=== PATIENT | female | born 1990 | race Caucasian/White ===

== ENCOUNTER 2018-08-30 15:27 | Emergency (ER) | payer OTHER ==
[~2018-08-30] VITALS: Ht 172.7 cm; Wt 64.7 kg
[~2018-08-30 15:27] MED LIST: DOCU10CA PO; FERR325T3 PO; MAPA500T2 PO; MOM30SS PO; MOTR200T44 PO; PRENTAB40 PO
[2018-08-30 16:51] LABS: BASO % 0.3 % (0.0-1.0); EOS # 0.1 10^3/uL (0.0-0.50); EOS % 1.5 % (0.0-3.0); HEMATOCRIT 37.4 % (36.0-47.0); HEMOGLOBIN 12.3 g/dl (12.0-15.5); LYMPH # 1.5 10^3/uL (1.5-4.5); MEAN CORPUSCULAR HEMOGLOBIN 26.8 pg (27.0-33.0); MEAN CORPUSCULAR HGB CONC 32.9 g/dl (32.0-36.5); MEAN CORPUSCULAR VOLUME 81.5 fl (80.0-96.0); MONO # 0.4 10^3/uL (0.0-0.8); MONO % 5.2 % (0.0-5.0); NEUTROPHILS # 5.5 10^3/uL (1.8-7.7); NEUTROPHILS % 72.7 % (36.0-66.0); PLATELET COUNT, AUTOMATED 256 10^3/uL (150-450); RED BLOOD COUNT 4.59 10^6/uL (4.00-5.40); WHITE BLOOD COUNT 7.5 10^3/uL (4.0-10.0)
[2018-08-30 16:59] LABS: APPEARANCE, URINE CLEAR (CLEAR); BACTERIA, URINE AUTO NEGATIVE (NEGATIVE); BILIRUBIN, URINE AUTO NEGATIVE (NEGATIVE); BLOOD, URINE BLOOD 1+ (NEGATIVE); COLOR, URINE STRAW (YELLOW); GLUCOSE, URINE (UA) AUTO NEGATIVE (NEGATIVE); KETONE, URINE AUTO NEGATIVE (NEGATIVE); LEUKOCYTE ESTERASE, URINE AUTO NEGATIVE (NEGATIVE); NITRITE, URINE AUTO NEGATIVE (NEGATIVE); PROTEIN, URINE AUTO NEGATIVE (NEGATIVE); RBC, URINE AUTO 2 /HPF (0-3); SPECIFIC GRAVITY URINE AUTO 1.004 (1.002-1.035); SQUAMOUS EPITHELIAL CELL UR AU 0 /HPF (0-6); UROBILINOGEN, URINE AUTO 0.2 mg/dL (0.0-2.0); WBC, URINE AUTO 0 /HPF (0-3)
[2018-08-30 17:45] LABS: BLOOD UREA NITROGEN 7 MG/DL (7-18); CALCIUM LEVEL 8.7 MG/DL (8.5-10.1); CARBON DIOXIDE LEVEL 25 MEQ/L (21-32); CHLORIDE LEVEL 109 MEQ/L (98-107); CREATININE FOR GFR 0.47 MG/DL (0.55-1.30); GLOMERULAR FILTRATION RATE > 60.0 (>60); GLUCOSE, FASTING 92 MG/DL (70-100); HCG, SERUM QUANTITATIVE 103635 MIU/ML; SODIUM LEVEL 139 MEQ/L (136-145)
[2018-08-30 18:15] VITALS: BP 106/57
--- NOTE | 2018-08-30 18:15 | REPVR ---
EXAM: US First Trimester, Transabdominal EXAM DATE/TIME: 08/30/2018 4:53 PM CLINICAL HISTORY: 28 years old, female; Condition or disease; Lmp or gestational age (weeks): 7 weeks 6 days; Other: Vaginal bleeding; 5th ; ; Additional info: Early preg, vag bleeding TECHNIQUE: Imaging protocol: Real-time transabdominal obstetrical ultrasound of the maternal pelvis and a first trimester , less than 14 weeks 0 days, with image documentation. COMPARISON: No relevant prior studies available. FINDINGS: Intrauterine gestational sac with decidual reaction is present. No evidence of implantational hemorrhage. Yolk sac is present. pole is identified, measuring 14 mm in length. Doppler demonstrates heart rate of 160 beats/min. Right ovary measures 4 x 2 x 2.8 cm in size. It contains a 17 mm complex which may represent a small hemorrhagic cyst. Left ovary measures 3.5 x 4.2 x 1.5 cm in size. It contains a 17 mm cyst Both right and left ovary demonstrate normal Doppler flow. No abnormal volume of free pelvic fluid. IMPRESSION: Early intrauterine at 7 weeks 6 days estimated gestational age. No complication. Probable small right ovarian hemorrhagic cyst 17 mm. Electronically signed by: Von Thomas On 08/30/2018 18:15:19 PM
== END 2018-08-30 18:17 | disposition home or self-care (01) ==
LOC: M ED 15:27
DX: O20.9 Hemorrhage in early pregnancy, unspecified (principal); Z3A.01 Less than 8 weeks gestation of pregnancy